=== PATIENT | male | born 1970 | race Caucasian/White ===

== ENCOUNTER 2020-02-13 11:39 | Emergency (ER) | payer BC ==
[2020-02-13 11:44] VITALS: BP 121/71; PULSE 93; TEMP 98; BMI 23.1
--- NOTE | 2020-02-13 12:14 | PDOC ---
History of Present Illness - General Chief Complaint: Laceration Stated Complaint: LACERATION LT PINKY FINGER Time Seen by Provider: 02/13/20 12:01 History Source: Patient Exam Limitations: No Limitations - History of Present Illness Initial Comments: 02/13/20 12:09 HISTORY OF PRESENT ILLNESS: 49-year-old RHD male presents emergency department for evaluation of laceration to the left fifth finger while cutting pizza today. Patient reports he had just sharpened the knife and while cutting the pizza lacerated the ulnar aspect of the left fifth digit. Laceration extends along the distal phalanx and is through the eponychia and nailbed. The laceration does not extend beyond the DIP . tetanus is up-to-date No recent travel or sick contacts. PAST MEDICAL HISTORY: Denies past medical history SURGICAL HISTORY: Denies ALLERGIES: No known drug allergies REVIEW OF SYSTEMS General/Constitutional: Denies fever or chills. Denies weakness, weight change. HEENT: Denies change in vision. Denies ear pain or discharge. Denies sore throat. Cardiovascular: Denies chest pain or shortness of breath. Respiratory: Denies cough, wheezing, or hemoptysis. Gastrointestinal: Denies nausea, vomiting, diarrhea or constipation. Denies rectal bleeding. Genitourinary: Denies dysuria, frequency, or change in urination. Musculoskeletal: Denies joint or muscle swelling or pain. Denies neck or back pain. Skin and breasts: See HPI Neurologic: Denies headache, vertigo, loss of consciousness, or loss of sensation. Psychiatric: Denies depression or anxiety. Endocrine: Denies increased thirst. Denies abnormal weight change. Hematologic/Lymphatic: Denies anemia, easy bleeding, or history of blood clots. Allergic/Immunologic: Denies hives or skin allergy. Denies latex allergy. PHYSICAL EXAM General Appearance: Well-appearing, appropriately dressed. No apparent distress, no intoxication. Vascular Pulses: Dorsalis-Pedis (R): 2+, Dorsalis-Pedis (L): 2+ Gastrointestinal/Abdominal: Normal bowel sounds. Abdomen soft, non-distended. No tenderness or rebound tenderness. No organomegaly, pulsatile mass, guarding, hernia, hepatomegaly, splenomegaly. Lymphatic: No adenopathy, tenderness. Musculoskeletal/Extremities: Normal inspection. FROM of all extremities, normal capillary refill. Neurovascularly intact. Integumentary: Approximate 3 cm flap laceration presents to the ulnar aspect of the left fifth digit. Laceration extends through the eponychia. Neurologic: beef skinner II-XII intact. Fully oriented, alert. Appropriate mood/affect. Motor strength 5/5. No appreciable EOM palsy, facial droop or sensory deficit. 02/13/20 13:43 02/13/20 13:55 Past History - Past Medical History Allergies/Adverse Reactions: Allergies Allergy/AdvReac Type Severity Reaction Status Date / Time No Known Allergies Allergy Verified 02/13/20 11:44 Home Medications: Ambulatory Orders NK [No Known Home Medication] 02/13/20 COPD: No - Immunization History Immunization Up to Date: Yes - Psycho Social/Smoking Cessation Hx Smoking History: Never smoked *Physical Exam - Vital Signs Last Vital Signs Temp Pulse Resp BP Pulse Ox 98 F 93 H 18 121/71 100 02/13/20 11:41 02/13/20 11:41 02/13/20 11:41 02/13/20 11:41 02/13/20 11:41 Procedures - Consent Consent obtained: Verbal, From Patient - Laceration/Wound Repair Left Lateral Finger 5th digit Wound Length: 2.6 to 5.0 cm Wound Explored: clean Wound's Depth, Shape: into muscle, flap Irrigated w/ Saline: Yes Betadine Prep: Yes Anesthesia: 2% Lidocaine Amount of Anesthetic (ccs): 6 Wound Debrided: moderate Wound Repaired With: Sutures Suture Size/Type: 5:0, proline Number of Sutures: 9 Layer Closure: Yes Deep Layer Suture Size/Type: 5:0, vycril Number of Deep Layer Sutures: 2 Sterile Dressing Applied: Yes Splint Applied: No Progress: 02/13/20 13:42 Patient tolerated well ED Treatment Course - RADIOLOGY Radiology Studies Ordered: Category Date Time Status FINGER(S) LEFT [RAD] Stat Radiology 02/13/20 12:02 Ordered Medical Decision Making - Medical Decision Making 02/13/20 12:13 A/P: 49-year-old male with laceration to the left fifth digit Approximate 3 cm flap laceration present over the ulnar aspect of the left fifth digit. Laceration ends prior to the DIP. Laceration through the nail bed and eponychia Tetanus is up-to-date X-ray Consult hand Phone call is been placed to Dr. Rust and awaiting return call at this time. 02/13/20 13:39 Case has been discussed with Germain who is a physician's cafeteria assistant with Dr. Rust. He recommends laceration repair and to follow-up in the office tomorrow. X-ray of the fingers is read by Dr. Vega: Bandage artifact. No gross fractur e or subluxation and no sign of blastic or lytic changes. Swelling or foreign body is not appreciated. Because of bandage artifact soft tissue air cannot be totally excluded. If symptoms persist further imaging without bandage artifact and orthopedic consultation may be of help. Laceration repair-see procedure note for details Discharge home to follow-up with orthopedics I discussed the physical exam findings, ancillary test results and final diagnoses with the patient. I answered all of the patient's questions. The patient was satisfied with the care received and felt comfortable with the discharge plan and treatment plan. The patient will call their primary care physician within 24 hours to arrange follow-up and will return to the Emergency Department with any new, persistent or worsening symptoms. Portions of this note have been documented using voice recognition software. As a result, errors may occur in the quality management nurse process. Effort has been made to correct all grammatical and quality management nurse error, but some may have been missed which may produce sporadic inaccurate quality management nurse or nonsensical phrases. 02/13/20 13:41 02/13/20 13:47 Discharge - Discharge Information Problems reviewed: Yes Clinical Impression/Diagnosis: Laceration of finger nail bed Qualifiers: Encounter type: initial encounter Qualified Code(s): S61.319A - Laceration without foreign body of unspecified finger with damage to nail, initial encounter Condition: Stable Disposition: HOME - Admission No - Follow up/Referral Referrals: Rodolfo Baker [Primary Care Provider] - Everett Rust MD [Staff Physician] - - Patient Discharge Instructions Additional Instructions: Keep wound clean and dry Avoid strenuous activity/exercise to create a hot or sweaty environment until sutures are removed Reapply bacitracin ointment 2 times a day until sutures are removed Return to emergency Department or private physician in 5-7 days for suture removal May use Tylenol or Motrin for pain relief Return immediately to emergency department for redness, swelling, pain, or signs of infection You been given a referral for Dr. Rust who is a hand specialist. They are expecting you to follow-up in the office tomorrow. Call first thing in the morning to schedule an appointment. - Post Discharge Activity
== END 2020-02-13 13:47 | disposition home or self-care (01) ==
LOC: JERFT 11:39
PROC: 0JQK0ZZ Repair Left Hand Subcutaneous Tissue and Fascia, Open Approach (ICD-10-PCS; principal; 2020-02-13)
DX: S61.317A Laceration without foreign body of left little finger with damage to nail, initial encounter (principal); W26.0XXA Contact with knife, initial encounter; Y93.G1 Activity, food preparation and clean up; Y92.038 Other place in apartment as the place of occurrence of the external cause; Y99.8 Other external cause status
CPT/HCPCS: 73140-TC-LT-FY; 99283-25